=== PATIENT | male | born 1945 | race Caucasian/White ===

== ENCOUNTER 2021-06-01 08:40 | Emergency (ER) | payer OTHER ==
[2021-06-01 10:07] LABS: Hematocrit 49.3 % (39.6-49.0); Lymphocytes % 14.9 % (15.3-44.8); MPV 9.8 fL (7.6-11.3); Protime INR 2.03; RBC Red Blood Cell Count 5.23 M/uL (4.33-5.43)
[2021-06-01 10:30] LABS: ALT/SGPT 20 U/L (12-78); AST/SGOT 13 U/L (15-37); Albumin 3.4 g/dL (3.4-5.0); Alkaline Phosphatase 74 U/L (45-117); BUN Blood Urea Nitrogen 19 mg/dL (7-18); Bicarbonate 25 mmol/L (21-32); Bilirubin Direct 0.2 mg/dL (0-0.2); Bilirubin Total 0.8 mg/dL (0.2-1.0); Glucose Level 105 mg/dL (74-106); Magnesium 2.1 mg/dL (1.8-2.4); NT PRO-BNP 313 pg/mL (<125); Potassium 3.8 mmol/L (3.5-5.1); Protein, Total 6.8 g/dL (6.4-8.2); Sodium Level 139 mmol/L (136-145); Troponin (Emerg Dept Use Only) < 0.02 ng/mL (0.0-0.045)
[2021-06-01 10:34] LABS: Urine Blood 1+ (Negative); Urine Glucose Negative (Negative); Urine Protein Negative (Negative); Urine Specific Gravity 1.025 (1.005-1.030); Urine pH 6.5 (5.0-7.0)
--- NOTE | 2021-06-01 10:55 | RAD REPORT ---
EXAM DESCRIPTION: RAD - Chest Single View - 06/01/2021 10:29 am CLINICAL HISTORY: CHEST PAIN COMPARISON: None TECHNIQUE: AP portable chest image was obtained 06/01/2021 10:29 am . FINDINGS: Lungs are clear of acute infiltrate. No failure or volume overload. Small granuloma seen i n the mid left lung field. Heart and vasculature are normal. No measurable pleural effusion and no pn eumothorax. No acute bony abnormality seen. No acute aortic findings suspected. IMPRESSION: No acute cardiopulmonary process.
--- NOTE | 2021-06-01 11:55 | ER ---
Nurse's Notes [facility] Name: Kali Hazel Age: 75 yrs Sex: Male : 1945 Arrival Date: 06/01/2021 Time: 08:42 Bed 4 Private MD: Diagnosis: Chest pain, unspecified Presentation: 06/01 08:47 Chief complaint: Patient states: he was sent from his PCP for an abnormal EKG. Patient ap3 reports having chest pressure "early this morning" but that feeling has since resolved. Coronavirus screen: At this time, the client does not indicate any symptoms associated with coronavirus-19. Ebola Screen: No symptoms or risks identified at this time. Initial Sepsis Screen: Does the patient meet any 2 criteria? No. Patient's initial sepsis screen is negative. Does the patient have a suspected source of infection? No. Patient's initial sepsis screen is negative. Risk Assessment: Do you want to hurt yourself or someone else? Patient reports no desire to harm self or others. Onset of symptoms was June 01, 2021. 08:47 Method Of Arrival: Ambulatory ap3 08:47 Acuity: SUZANNE 3 ap3 Triage Assessment: 08:52 General: Appears in no apparent distress. comfortable, Behavior is calm, cooperative. ap3 Pain: Complains of pain in chest Pain radiates to neck patient states the pain has subsided at this time Pain currently is 0 out of 10 on a pain scale. at worst was 8 out of 10 on a pain scale. Quality of pain is described as pressure. Neuro: Level of Consciousness is awake, alert, obeys commands, Oriented to person, place, time, situation, Appropriate for age Gait is steady, Speech is normal. Cardiovascular: Capillary refill < 3 seconds Patient's skin is warm and dry. Respiratory: Airway is patent Respiratory effort is even, unlabored. Historical: - Allergies: 08:49 No Known Allergies; ap3 - Home Meds: 08:49 amiodarone 200 mg Oral tab 1 tab once daily [Active]; atorvastatin 40 mg oral tab .5 ap3 tab once daily [Active]; doxazosin 8 mg oral tab 1 tab once daily [Active]; levothyroxine 25 mcg cap 1 cap once daily [Active]; omeprazole 20 mg Oral cpDR 1 cap once daily [Active]; rivaroxaban 20 mg oral tab 1 tab once daily [Active]; pantoprazole 20 mg oral TbEC 1 tab once daily [Active]; tamsulosin 0.4 mg oral cap 1 cap BID [Active]; - Immunization history:: Client reports receiving the 2nd dose of the Covid vaccine, and booster. - Social history:: Smoking status: Patient denies any tobacco usage or history of. Screenin:54 Abuse screen: Denies threats or abuse. Nutritional screening: No deficits noted. ap3 Tuberculosis screening: No symptoms or risk factors identified. Fall Risk None identified. Assessment: 09:00 General: Appears in no apparent distress. Behavior is calm, cooperative. Pain: Denies jg9 pain. Neuro: No deficits noted. Cardiovascular: Reports Patient reports left sided chest pressure radiating up to the left neck this morning and bilateral arm weakness/heaviness, patient reports pain has subsided. Respiratory: No deficits noted. GI: No deficits noted. : No deficits noted. EENT: No deficits noted. Derm: No deficits noted. Musculoskeletal: No deficits noted. Vital Signs: 08:47 BP 135 / 97; Pulse 102; Resp 17; Temp 97.4(TE); Pulse Ox 98% on R/A; Weight 95.25 kg; ap3 Height 5 ft. 8 in. (172.72 cm); 09:40 BP 133 / 81; Pulse 80; Resp 13 S; Pulse Ox 98% on R/A; jg9 10:00 BP 142 / 89; Pulse 74; Resp 17 S; Pulse Ox 98% on R/A; jg9 11:40 BP 147 / 94; Pulse 81; Resp 14; Pulse Ox 98% on R/A; jg9 08:47 Body Mass Index 31.93 (95.25 kg, 172.72 cm) ap3 ED Course: 08:42 Patient arrived in ED. mr 08:49 Triage completed. ap3 08:54 Arm band placed on left wrist. ap3 09:00 Patient has correct armband on for positive identification. Bed in low position. Call jg9 light in reach. Side rails up X 1. 09:04 Russel Vicente NP is PHCP. pm1 09:04 Abner Acosta MD is Attending Physician. pm1 09:15 Inserted saline lock: 20 gauge in right forearm, using aseptic technique. jg9 10:29 XRAY Chest (1 view) In Process Unspecified. EDMS 12:11 No provider procedures requiring assistance completed. jg9 12:12 IV discontinued. jg9 Administered Medications: No medications were administered Outcome: 12:11 AMA AMA form signed jg9 12:11 unknown 12:11 Instructed on discharge instructions, follow up and referral plans. leaving against medical advise risk 12:12 Patient left the ED. jg9 Signatures: Dispatcher [employer] EDMT Daina Morrow Patrick, NP SPINNING OPERATOR pm1 Lauren Hale RN RN ap3 Marisela Ridley jg9
--- NOTE | 2021-06-01 11:56 | EDPHYS ---
Physician Documentation [facility] Name: Kali Hazel Age: 75 yrs Sex: Male : 1945 Arrival Date: 06/01/2021 Time: 08:42 Bed 4 Private MD: MANDIE Physician Abner Acosta HPI: 06/01 09:16 This 75 yrs old Male presents to ER via Ambulatory with complaints of Abnormal ECG. pm1 09:16 The patient or guardian reports chest pain that is located primarily in the mid-sternal pm1 area. Onset: this morning, at 02:30. The pain does not radiate. Associated signs and symptoms: Pertinent positives: diaphoresis, palpitations, shortness of breath, Pertinent negatives: abdominal pain, dizziness, headache, nausea, vomiting. The chest pain is described as a pressure. Duration: The patient or guardian reports a single episode, that is now resolved, that lasted 1.5 hour(s). Modifying factors: the symptoms are aggravated by exertion. Severity of pain: in the emergency department the pain has resolved. The patient has not experienced similar symptoms in the past. The patient has been recently seen by a physician: the patient's primary care provider, with similar presenting complaints, and was sent to the [facility] Emergency Department for further evaluation, Was seen in the clinic with his PCP for the same complaint. Performed, abnormal, and sent to the ER for evaluation and treatment. Historical: - Allergies: 08:49 No Known Allergies; ap3 - Home Meds: 08:49 amiodarone 200 mg Oral tab 1 tab once daily [Active]; atorvastatin 40 mg oral tab .5 ap3 tab once daily [Active]; doxazosin 8 mg oral tab 1 tab once daily [Active]; levothyroxine 25 mcg cap 1 cap once daily [Active]; omeprazole 20 mg Oral cpDR 1 cap once daily [Active]; rivaroxaban 20 mg oral tab 1 tab once daily [Active]; pantoprazole 20 mg oral TbEC 1 tab once daily [Active]; tamsulosin 0.4 mg oral cap 1 cap BID [Active]; - Immunization history:: Client reports receiving the 2nd dose of the Covid vaccine, and booster. - Social history:: Smoking status: Patient denies any tobacco usage or history of. ROS: 09:16 Constitutional: Negative for fever, chills, and weight loss. pm1 09:16 Abdomen/GI: Negative for abdominal pain, nausea, vomiting, diarrhea, and constipation, Back: Negative for injury and pain, MS/Extremity: Negative for injury and deformity, Skin: Negative for injury, rash, and discoloration, Neuro: Negative for headache, weakness, numbness, tingling, and seizure. 09:16 Cardiovascular: Positive for chest pain, palpitations, Negative for edema. 09:16 Respiratory: Negative for shortness of breath. 09:16 All other systems are negative. Exam: 09:16 Constitutional: This is a well developed, well nourished patient who is awake, alert, pm1 and in no acute distress. Head/Face: Normocephalic, atraumatic. 09:16 Abdomen/GI: Soft, non-tender, with normal bowel sounds. No distension or tympany. No guarding or rebound. No evidence of tenderness throughout. Back: No spinal tenderness. No costovertebral tenderness. Full range of motion. Skin: Warm, dry with normal turgor. Normal color with no rashes, no lesions, and no evidence of cellulitis. MS/ Extremity: Pulses equal, no cyanosis. Neurovascular intact. Full, normal range of motion. 09:16 Cardiovascular: Rate: normal, Rhythm: regular, Pulses: no pulse deficits are appreciated, Heart sounds: normal, Edema: is not appreciated. 09:16 Respiratory: Exam negative for acute changes, respiratory distress, shortness of breath, Breath sounds: are clear throughout. 09:16 Neuro: Exam negative for acute changes, Orientation: is normal, Mentation: is normal, Motor: is normal, moves all fours. 09:16 Eyes: Exam is negative for acute changes, Extraocular movements: intact throughout, pm1 Conjunctiva: no acute changes, no injection. 09:16 ENT: Exam is negative for acute changes, Mouth: no acute changes, Lips: normal, moist, Oral mucosa: normal, pink and intact, moist. Vital Signs: 08:47 BP 135 / 97; Pulse 102; Resp 17; Temp 97.4(TE); Pulse Ox 98% on R/A; Weight 95.25 kg; ap3 Height 5 ft. 8 in. (172.72 cm); 09:40 BP 133 / 81; Pulse 80; Resp 13 S; Pulse Ox 98% on R/A; jg9 10:00 BP 142 / 89; Pulse 74; Resp 17 S; Pulse Ox 98% on R/A; jg9 11:40 BP 147 / 94; Pulse 81; Resp 14; Pulse Ox 98% on R/A; jg9 08:47 Body Mass Index 31.93 (95.25 kg, 172.72 cm) ap3 MDM: 09:07 Patient medically screened. pm1 11:53 Data reviewed: vital signs. Data interpreted: Pulse oximetry: on room air is 98 %. pm1 Interpretation: normal. 11:53 Counseling: I had a detailed discussion with the patient and/or guardian regarding: the pm1 historical points, exam findings, and any diagnostic results supporting the discharge/admit diagnosis, lab results, radiology results, the need for further work-up and treatment in the hospital. 11:53 Refusal of service: The patient/guardian displays adequate decision making capability pm1 and despite a detailed discussion of alternatives, benefits, risks, and consequences refuses: Admission to the hospital for further work-up and treatment. 06/01 09:15 Order name: Basic Metabolic Panel; Complete Time: 11:12 pm1 06/01 09:15 Order name: CBC with Diff; Complete Time: 10:20 pm1 06/01 09:15 Order name: LFT's; Complete Time: 11:12 pm1 06/01 09:15 Order name: Magnesium; Complete Time: 11:12 pm1 06/01 09:15 Order name: NT PRO-BNP; Complete Time: 11:12 pm1 06/01 09:15 Order name: PT-INR; Complete Time: 10:10 pm1 06/01 09:15 Order name: Troponin (emerg Dept Use Only); Complete Time: 11:12 pm1 06/01 09:15 Order name: XRAY Chest (1 view); Complete Time: 11:12 pm1 06/01 09:15 Order name: EKG; Complete Time: 09:16 pm1 06/01 09:15 Order name: Cardiac monitoring; Complete Time: 10:00 pm1 06/01 09:15 Order name: EKG - Nurse/Tech; Complete Time: 10:00 pm1 06/01 09:15 Order name: TSH; Complete Time: 11:12 pm1 06/01 10:34 Order name: Urine Dipstick-Ancillary; Complete Time: 11:12 EDIA 06/01 10:39 Order name: T4 Free; Complete Time: 11:12 EDIA 06/01 09:15 Order name: IV Saline Lock; Complete Time: 10:00 pm1 06/01 09:15 Order name: Labs collected and sent; Complete Time: 10:00 pm1 06/01 09:15 Order name: O2 Sat Monitoring; Complete Time: 10:00 pm1 Administered Medications: No medications were administered Disposition Summary: 06/01/21 11:55 Left Against Medical Advice Location: Home pm1 Problem: new pm1 Symptoms: have improved pm1 Condition: Undetermined pm1 Diagnosis - Chest pain, unspecified pm1 Followup: pm1 - With: Emergency Department - When: As needed - Reason: Worsening of condition Followup: pm1 - With: Private Physician - When: Upon discharge from the Emergency Department - Reason: Recheck today's complaints, Continuance of care, Re-evaluation by your physician Discharge Instructions: - Discharge Summary Sheet pm1 - Nonspecific Chest Pain, Adult pm1 Addendum: 06/02/2021 12:51 Co-signature as Attending Physician, Abner Acosta MD I agree with the assessment and c lazaro plan of care. Signatures: Dispatcher [employer] [facility] Abner Acosta MD MD cha Marinas, Patrick, [employer] pm1 Lauren Hale RN RN ap3
[2021-06-01 12:38] VITALS: TEMP 97.4; O2SAT 98
[2021-06-01 12:43] VITALS: BP 147/94
== END 2021-06-01 12:12 | disposition left against medical advice (07) ==
LOC: ER 08:40
DX: R07.9 Chest pain, unspecified (principal)
CPT/HCPCS: 36415; 71045; 80048; 80076; 81003; 83735; 83880; 84439; 84443; 84484; 85025; 85610; 93005; 99283